=== PATIENT | male | born 1945 | race Two or more races ===

== ENCOUNTER 2023-09-13 11:10 | Emergency (ER) | payer OTHER ==
[~2023-09-13] VITALS: Ht 175.3 cm; Wt 72.6 kg
[2023-09-13] MEDS ORDERED: CARVEDILOL6.25 MG (11:32)
[2023-09-13] MEDS ORDERED: CRESTOR10 MG PO (11:32)
[2023-09-13 12:49] LABS: HEMATOCRIT 42.1 % (39.0-48.0); HEMOGLOBIN 14.6 g/dL (13-16.00); MEAN CELL VOLUME 89.1 fL (80.0-100.00); MEAN CORPUSCULAR HEMOGLOBIN 30.9 pg (27.00-32.0); MEAN CORPUSCULAR HGB CONC 34.7 g/dl (32.0-36.0); RED BLOOD COUNT 4.72 M/uL (4.00-6.00); RED CELL DISTRIBUTION WIDTH 13.3 % (11.5-14.5)
[2023-09-13 12:50] LABS: PLATELET COUNT 91 K/uL (150-450)
[2023-09-13 13:27] LABS: CALCIUM 9.3 mg/dL (8.5-10.1); CREATININE SERUM 0.86 mg/dL (0.70-1.30); GFR 85.56; POTASSIUM 4.28 mEq/L (3.5-5.1)
== END 2023-09-13 13:59 | disposition home or self-care (01) ==
LOC: ER 11:10
PROVIDERS: General Practice
DX: R07.9 Chest pain, unspecified (principal); Z95.1 Presence of aortocoronary bypass graft; I50.9 Heart failure, unspecified; K21.9 Gastro-esophageal reflux disease without esophagitis